=== PATIENT | female | born 1940 | race Caucasian/White ===

== ENCOUNTER → 2019-11-28 09:18 | Outpatient (BNVA) | payer MEDICARE, SELFPAY | PROVIDERS: Family Provider Family Medicine; PCP Family Medicine; Visit Provider Family Medicine | DX: I10 Essential (primary) hypertension (principal); E11.9 Type 2 diabetes mellitus without complications; E78.5 Hyperlipidemia, unspecified; K21.9 Gastro-esophageal reflux disease without esophagitis; N39.46 Mixed incontinence | CPT/HCPCS: 80053; 80061; 82043; 83036; 85025 ==

== ENCOUNTER → 2019-12-14 08:03 | Outpatient (BNVA) | payer MEDICARE, SELFPAY | PROVIDERS: Family Provider Family Medicine; PCP Family Medicine; Visit Provider Family Medicine | DX: R79.89 Other specified abnormal findings of blood chemistry (principal) | CPT/HCPCS: 80048 ==

== ENCOUNTER → 2020-02-13 09:48 | Outpatient (BNVA) | payer MEDICARE, SELFPAY | PROVIDERS: Family Provider Family Medicine; PCP Family Medicine; Visit Provider Specialist | DX: R79.89 Other specified abnormal findings of blood chemistry (principal); M25.511 Pain in right shoulder; Z98.890 Other specified postprocedural states | CPT/HCPCS: 73030; 80048 ==

== ENCOUNTER → 2020-03-14 08:35 | Outpatient (BNVA) | payer MEDICARE, SELFPAY | PROVIDERS: Family Provider Family Medicine; PCP Family Medicine; Visit Provider Family Medicine | DX: I10 Essential (primary) hypertension (principal); E11.9 Type 2 diabetes mellitus without complications | CPT/HCPCS: 80048; 83036 ==

== ENCOUNTER 2020-05-15 08:32 | Outpatient (CLI) | payer MEDICARE, SELFPAY ==
--- NOTE | 2020-05-15 08:37 | MM_ITS ---
WS: [id number] BILATERAL SCREENING DIGITAL MAMMOGRAM WITH CAD HISTORY: SCREENING COMPARISON: 03/27/2019 Bilateral CC and MLO views submitted. Computer aided detection analyzed. Breast composition: The breasts are heterogeneously dense, which may obscure small masses. No suspici ous masses, microcalcifications or architectural distortion. Scattered asymmetries and calcifications are stable. MM/[place] [id number] IMPRESSION: BI-RADS: 2-Benign FOLLOW UP: 1 Year Follow-up
== END 2020-05-15 08:33 | disposition home or self-care (01) ==
LOC: RADSHAW 08:36
PROVIDERS: PCP Family Medicine; Visit Provider Family Medicine
DX: Z12.31 Encounter for screening mammogram for malignant neoplasm of breast (principal)
CPT/HCPCS: 77067

== ENCOUNTER → 2020-05-29 08:16 | Outpatient (BNVA) | payer MEDICARE, SELFPAY | PROVIDERS: PCP Family Medicine; Visit Provider Family Medicine | DX: I10 Essential (primary) hypertension (principal); E78.2 Mixed hyperlipidemia; E11.9 Type 2 diabetes mellitus without complications; K21.9 Gastro-esophageal reflux disease without esophagitis | CPT/HCPCS: 80048; 80061 ==

== ENCOUNTER → 2020-11-24 08:23 | Outpatient (BNVA) | payer MEDICARE, SELFPAY | PROVIDERS: PCP Family Medicine; Visit Provider Family Medicine | DX: I10 Essential (primary) hypertension (principal); E11.9 Type 2 diabetes mellitus without complications; G89.29 Other chronic pain; M54.5 Low back pain; E78.2 Mixed hyperlipidemia; K21.9 Gastro-esophageal reflux disease without esophagitis; N39.46 Mixed incontinence | CPT/HCPCS: 80053; 80307; 80373; 82043; 83036; 85025 ==

== ENCOUNTER 2021-05-20 09:10 | Outpatient (CLI) | payer MEDICARE, SELFPAY ==
--- NOTE | 2021-05-20 09:23 | MM_ITS ---
WS: [id number] BILATERAL DIGITAL SCREENING MAMMOGRAPHY WITH CAD CLINICAL INFORMATION: SCREENING HISTORY: Screening mammogram. No current complaints. COMPARISON: May 15, 2020 TECHNIQUE: Bilateral CC and MLO views. FINDINGS: The breasts are composed of heterogeneous fibroglandular density tissue, which can limit the detectio n of small underlying mass lesions. Punctate and lucent centered calcifications. No suspicious mass, asymmetry, calcifications, or architectural distortion. No evidence of malignancy. MM/[place] [id number] IMPRESSION: BI-RADS: 2-Benign FOLLOW UP: 1 Year Follow-up Recommend return to annual screening mammography.
== END 2021-05-20 09:11 | disposition home or self-care (01) ==
LOC: RADSHAW 09:21
PROVIDERS: PCP Family Medicine; Visit Provider Family Medicine
DX: Z12.31 Encounter for screening mammogram for malignant neoplasm of breast (principal)
CPT/HCPCS: 77067

== ENCOUNTER → 2021-05-25 09:31 | Outpatient (BNVA) | payer MEDICARE, SELFPAY | PROVIDERS: PCP Family Medicine; Visit Provider Family Medicine | DX: E78.2 Mixed hyperlipidemia (principal); E11.9 Type 2 diabetes mellitus without complications; M54.50 Low back pain, unspecified | CPT/HCPCS: 80053; 80061; 83036 ==

== ENCOUNTER → 2021-11-23 08:47 | Outpatient (BNVA) | payer MEDICARE, SELFPAY | PROVIDERS: PCP Family Medicine; Visit Provider Family Medicine | DX: E11.9 Type 2 diabetes mellitus without complications (principal); I10 Essential (primary) hypertension; E78.2 Mixed hyperlipidemia; K21.9 Gastro-esophageal reflux disease without esophagitis; N39.46 Mixed incontinence | CPT/HCPCS: 80053; 82043; 83036; 85025 ==

== ENCOUNTER 2022-03-03 07:21 | Outpatient (CLI) | payer MEDICARE, SELFPAY ==
[2022-03-03 07:37] VITALS: BMI 32.3
--- NOTE | 2022-03-03 07:39 | SUR.PREOP ---
Test Change Spoke with MD yesterday reguarding stress modality. Patient unable to walk on the treadmill d/t sciatic nerve injections from Tuesday. Clarified with Josie Cifuentes to change stress modality to Lexiscan. Noted. Patient ok with the change.
--- NOTE | 2022-03-03 07:42 | NMCV_ITS ---
NM shu perf SPECT r/s* [id number] Annette Zavala Age: 81 Gender: F : 1940 Exam Date: 03/03/2022 08:37 Ordering Phys: Josie Cifuentes DO Technologist: LUIS Barrett Exam Location: [facility] Indications: DYSPNEA STRESS TEST Please see separate stress test report in [facility] for full findings IMAGE PROTOCOL Rest/Stress 1 Lexiscan Day Radiopharmaceutical Dose (mCi) Administration Site Administered by Rest: Tc-99m 10.7 IV LUIS Brown Sestamibi Stress:Tc-99m 32.6 IV LUIS Brown Sestamibi Rest: 03-Mar-2022 60 Discovery 630 Stress: 03-Mar-2022 30 Discovery 630 0.4mg Lexiscan. Images obtained in supine and prone position. SPECT RESULTS Technical Quality: Excellent Raw Data Analysis: Normal Image Corrections: No attenuation or motion correction applied Summed Stress Score: 0 Summed Rest Score: 1 Summed Difference Score: 0 PERFUSION FINDINGS Small size perfusion abnormality of mild severity of mid inferolateral wall with improved tracer uptake on stress images. This is suggestive of attenuation artifact. FUNCTIONAL RESULTS (calculated via Gated SPECT) Stress Image LV EF (%): 84 Stress EDV (mL):44 TID: 1.11 Stress ESV (mL):7 FUNCTIONAL FINDINGS: The left ventricle is normal in size. Transient Ischemia Dilatation of 1.1. The left ventricular ejection fraction is normal with a value of 84%. There is hyperdynamic left ventricular wall thickening. IMPRESSIONS 1. Myocardial perfusion imaging is normal. 2. Overall left ventricular systolic function is hyperdynamic without regional wall motion abnormalities, LVEF=84%. 3. No EKG changes with Lexiscan infusion. Refer to separate report for details. Francheska Ernst MD (Electronically Signed) Final Date: 03 March 2022 13:12 S
--- NOTE | 2022-03-03 07:42 | ECG_ITS ---
[facility] Test Date: 2022-03-03 Pat Name: Annette Zavala Department: Room: Gender: Female Rib Chopper: : 1940 Requested By: Josie Cifuentes Order Number: [id number] Juan Jose MD: Francheska Ernst M.D. Interpretive Statements NAME OF STUDY: LEXISCAN SESTAMIBI STRESS TEST INDICATION: Dyspnea on Exertion PROCEDURE: At the baseline, the blood pressure was 166/84 mmHg with a heart rate of 55 beats per min. The electrocardiogram showed sinus bradycardia, normal axis with nonspecific ST depression. The Lexiscan was infused over a period of 20 seconds. A total of 0.4 milligrams of Lexiscan was infused. The stress phase was continued for a total of 5 minutes. Heart rate at the end of the stress phase was 75 bpm with a blood pressure of 142/74 mmHg. The EKG at the peak infusion revealed sinus rhythm with no significant ST-T wave changes. The study was terminated due to protocol completion. Sestamibi was injected 20 seconds after the Lexiscan infusion. Blood pressure at the end of the recovery phase was 141/62 mmHg with a heart rate of 72 beats per minute. CONCLUSION: 1. No significant EKG changes with the LexiScan infusion. 2. No LexiScan induced chest pain or cardiac arrhythmia. 3. Normal blood pressure and heart rate response. 4. Sestamibi/sestamibi perfusion scan pending; see separate report. Electronically Signed On 03-03-2022 13:15:04 CDT by Francheska Ernst M.D. [id number]
[2022-03-03] MEDS: regadenoson 0.4 Mg/5 ml Syringe IVP (09:29)
[2022-03-03 09:46] VITALS: BP 141/62; PULSE 82
== END 2022-03-03 07:22 | disposition home or self-care (01) ==
PROVIDERS: PCP Family Medicine; Visit Provider Family Medicine
DX: R06.09 Other forms of dyspnea (principal)
CPT/HCPCS: 78452; 93017; A9500; J2785

== ENCOUNTER 2022-05-20 09:07 | Outpatient (CLI) | payer MEDICARE, SELFPAY ==
--- NOTE | 2022-05-20 09:20 | MM_ITS ---
WS: [id number] BILATERAL SCREENING DIGITAL TOMOSYNTHESIS MAMMOGRAM WITH CAD HISTORY: SCREENING COMPARISON: 05/20/2021, 05/15/2020 and 03/27/2019 Bilateral CC and MLO views with tomosynthesis and synthetic mammography submitted. Computer aided det ection analyzed. Breast composition: The breasts are heterogeneously dense, which may obscure small masses. No suspici ous masses, microcalcifications or architectural distortion. Numerous benign-appearing calcifications . Scattered asymmetries are stable. No progression or change or distortion over multiple prior years. MM/[place] [id number] IMPRESSION: BI-RADS: 2-Benign FOLLOW UP: 1 Year Follow-up
== END 2022-05-20 09:08 | disposition home or self-care (01) ==
PROVIDERS: PCP Family Medicine; Visit Provider Family Medicine
DX: Z12.31 Encounter for screening mammogram for malignant neoplasm of breast (principal)
CPT/HCPCS: 77063; 77067

== ENCOUNTER → 2022-06-15 12:04 | Outpatient (BNVA) | payer MEDICARE, SELFPAY | PROVIDERS: PCP Family Medicine; Visit Provider Family Medicine | DX: N39.46 Mixed incontinence (principal); E78.2 Mixed hyperlipidemia; M54.42 Lumbago with sciatica, left side; G89.29 Other chronic pain; I10 Essential (primary) hypertension | CPT/HCPCS: 80048; 80061 ==

== ENCOUNTER → 2022-06-21 07:50 | Outpatient (BNVA) | payer MEDICARE, SELFPAY | PROVIDERS: PCP Family Medicine; Visit Provider Family Medicine | DX: E83.52 Hypercalcemia (principal) | CPT/HCPCS: 82310; 83970 ==

== ENCOUNTER → 2022-06-22 12:26 | Outpatient (BNVA) | payer MEDICARE, SELFPAY | PROVIDERS: PCP Family Medicine; Visit Provider Family Medicine | DX: E55.9 Vitamin D deficiency, unspecified (principal); E83.52 Hypercalcemia | CPT/HCPCS: 82306 ==

== ENCOUNTER 2022-06-24 13:30 | Outpatient (CLI) | payer MEDICARE, SELFPAY ==
[2022-06-24 15:19] LABS: Total Volume Urine 500 ml
[2022-06-24 15:36] LABS: Calcium 24 Hour Urine 192 mg/24hr (100-300); Urine Calcium Result 38.3 mg/dL
== END 2022-06-24 13:31 | disposition home or self-care (01) ==
PROVIDERS: PCP Family Medicine; Visit Provider Family Medicine
DX: E83.52 Hypercalcemia (principal)
CPT/HCPCS: 82340

== ENCOUNTER 2022-07-07 14:48 | Outpatient (CLI) | payer MEDICARE, SELFPAY ==
--- NOTE | 2022-07-07 15:00 | XR_ITS ---
WS: [id number] DEXA (DUAL ENERGY X-RAY ABSORPTIOMETRY) Bone mineral density was performed using a [employer] machine. HISTORY: E21.0 - Primary hyperparathyroidism COMPARISON: 03/27/2019 Lumbar spine BMD (L1-L4): 1.025 g/cm2 T score: -1.3 Z score: 0.2 Total hip BMD: Left: 0.823 g/cm2. T score: -1.5 Z score: 0.3 Right: 0.849 g/cm2. T score: -1.3 Z score: 0.5 10 year probability of a major osteoporotic fracture is 18.2%. Compared to the prior study from 03/27/2019. Lumbar spine bone mineral density has increased by 2.4%. Bilateral hips bone mineral density has increased by 0.4%. XR/XR DEXA axial skeleton* [id number] IMPRESSION: OSTEOPENIA based upon the WHO classification for females. Significant increase in bone mineral density within the lumbar spine since the prior study.
== END 2022-07-07 14:49 | disposition home or self-care (01) ==
PROVIDERS: PCP Family Medicine; Visit Provider Family Medicine
DX: E21.0 Primary hyperparathyroidism (principal); M85.80 Other specified disorders of bone density and structure, unspecified site
CPT/HCPCS: 77080

== ENCOUNTER → 2022-08-02 11:19 | Outpatient (BNVA) | payer MEDICARE, SELFPAY | PROVIDERS: PCP Family Medicine; Referring Provider Family Medicine; Visit Provider Internal Medicine | DX: E83.52 Hypercalcemia (principal); R63.5 Abnormal weight gain; Z68.34 Body mass index [BMI] 34.0-34.9, adult | CPT/HCPCS: 99204 ==

== ENCOUNTER → 2022-08-10 11:16 | Outpatient (BNVA) | payer MEDICARE, SELFPAY | PROVIDERS: PCP Family Medicine; Visit Provider Internal Medicine | DX: M54.42 Lumbago with sciatica, left side; G89.29 Other chronic pain; K21.9 Gastro-esophageal reflux disease without esophagitis; R06.09 Other forms of dyspnea; I10 Essential (primary) hypertension; R32 Unspecified urinary incontinence; E78.5 Hyperlipidemia, unspecified | CPT/HCPCS: 84439; 84443; 84480 ==

== ENCOUNTER → 2022-12-14 08:25 | Outpatient (BNVA) | payer MEDICARE, SELFPAY | PROVIDERS: PCP Family Medicine; Visit Provider Family Medicine | DX: N18.32 Chronic kidney disease, stage 3b (principal); I10 Essential (primary) hypertension; E11.9 Type 2 diabetes mellitus without complications | CPT/HCPCS: 80053; 83036 ==

== ENCOUNTER 2023-05-25 08:59 | Outpatient (CLI) | payer MEDICARE, SELFPAY ==
--- NOTE | 2023-05-25 09:13 | MM_ITS ---
WS: [id number] BILATERAL SCREENING DIGITAL TOMOSYNTHESIS MAMMOGRAM WITH CAD HISTORY: SCREENING COMPARISON: 05/20/2022, 05/15/2020 and 05/20/2021 Bilateral CC and MLO views with tomosynthesis and synthetic mammography submitted. Computer aided det ection analyzed. Breast composition: The breasts are heterogeneously dense, which may obscure small masses. No suspici ous masses, microcalcifications or architectural distortion. Bilateral asymmetries and calcifications in each breast. IMPRESSION: MM/[place] [id number] BI-RADS: 2-Benign FOLLOW UP: 1 Year Follow-up
== END 2023-05-25 09:00 | disposition home or self-care (01) ==
LOC: RAD 09:01
PROVIDERS: PCP Family Medicine; Visit Provider Family Medicine
DX: Z12.31 Encounter for screening mammogram for malignant neoplasm of breast (principal); R92.333 Mammographic heterogeneous density, bilateral breasts; N64.89 Other specified disorders of breast; R92.1 Mammographic calcification found on diagnostic imaging of breast
CPT/HCPCS: 77063; 77067

== ENCOUNTER → 2023-06-09 08:35 | Outpatient (BNVA) | payer MEDICARE, SELFPAY | PROVIDERS: PCP Family Medicine; Visit Provider Family Medicine | DX: I10 Essential (primary) hypertension (principal); E11.9 Type 2 diabetes mellitus without complications | CPT/HCPCS: 80053; 80061; 82043; 83036; 85025 ==

== ENCOUNTER → 2024-01-05 09:14 | Outpatient (BNVA) | payer MEDICARE, SELFPAY | PROVIDERS: PCP Family Medicine; Visit Provider Family Medicine | DX: N18.31 Chronic kidney disease, stage 3a (principal); R73.03 Prediabetes | CPT/HCPCS: 80053; 83036 ==

== ENCOUNTER 2024-06-18 08:38 | Outpatient (CLI) | payer MEDICARE, SELFPAY ==
--- NOTE | 2024-06-18 09:00 | MM_ITS ---
WS: [id number] VIEWS: MLO and CC views both breasts. 3D digital tomosynthesis is also included in this exam. Comparison made with prior exam of 03/27/2019. 05/15/2020. 05/20/2021. 05/20/2022. 05/25/2023.. Findings: The breasts are heterogeneously dense, which may obscure small masses. No mass, tumor calcification or architectural distortion. No new finding. MM/MM scr BI tomosynthesis [id number] Impression: BI-RADS: 2 - Benign FOLLOW-UP: 1 Year Follow-up This mammogram was also analyzed by the Computer Aided Detection System R2 Imag e [employer].
--- NOTE | 2024-06-18 09:15 | XRR_ITS ---
PROCEDURE INFORMATION: Exam: XR Lumbosacral Spine Exam date and time: 06/18/2024 9:45 AM Age: 83 years old Clinical indication: Pain; Lumbago with sciatica; Left; Additional info: M54.42 - lumbago with sciatica, left side TECHNIQUE: Imaging protocol: Radiologic exam of the lumbosacral spine. Views: 4 or 5 views. COMPARISON: No relevant prior studies available. FINDINGS: Bones/joints: Mild broad-based convex left lumbar curvature centered at L2-L3. Vertebral body height is maintained. Moderate diffuse lumbar disc narrowing. There are chronic bilateral L5 pars defects with grade 2 anterolisthesis of L5 on S1. There is moderate diffuse lumbar facet spondylosis. The visible portion of the pelvis and sacrum is intact. Visible portions of the ribs are intact. Soft tissues: Visible soft tissues are unremarkable. Vasculature: There is moderate aortic atherosclerotic disease. XR/XR lumbar spine min 4V [id number] IMPRESSION: 1. 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 2. Moderate diffuse lumbar disc and facet degeneration.
== END 2024-06-18 08:39 ==
LOC: RAD 08:39
PROVIDERS: PCP Family Medicine; Visit Provider Family Medicine
DX: M54.16 Radiculopathy, lumbar region (principal); M54.42 Lumbago with sciatica, left side; G89.29 Other chronic pain; Z12.31 Encounter for screening mammogram for malignant neoplasm of breast; R92.333 Mammographic heterogeneous density, bilateral breasts
CPT/HCPCS: 72110; 77063; 77067; 99204

== ENCOUNTER 2024-06-28 07:51 | Outpatient (CLI) | payer MEDICARE, SELFPAY ==
--- NOTE | 2024-06-28 08:00 | MR_ITS ---
WS: [id number] MRI LUMBAR SPINE NONCONTRAST HISTORY: M54.16 - Radiculopathy, lumbar region, chronic pain down LEFT leg. COMPARISON: None available. TECHNIQUE: Sagittal and axial multisequence imaging is submitted. Advanced cervical and thoracic spondylosis. Disc bases are narrowed with osteophytes in the cervical and thoracic cord. Mild curvature of the lumbar spine. L5 anterolisthesis by 8.5 mm. L3 anterolisthesis by 2.3 mm. Moderate to advanced disc space narrowing throughout the lumbar spine with vertebral endplate osteophytes. Small amount of reactive marrow edema along the endplates of L5 and S1. No acute fracture. Conus terminates normally at L1-2 disc level. T12-L1: Broad-based shallow central disc protrusion. Mild foraminal stenosis. L1-L2: Diffuse disc bulging with facet arthritis. Moderate bilateral foraminal stenosis. L2-L3: Diffuse disc bulging with marked ligamentum flavum and facet arthritis. LEFT foraminal disc protrusion. Mild central with moderate bilateral subarticular recess and foraminal stenosis. Disc contacting the L2 and L3 nerve roots. L3-L4: Diffuse annular disc bulging with facet joint arthropathy and facet arthritis. Mild central stenosis. Moderate to severe bilateral subarticular recess and foraminal stenosis. L4-L5: Marked annular disc bulging with severe ligamentum flavum and facet arthritis. Mild central and subarticular recess encroachment. Moderate bilateral foraminal stenosis. L5-S1: Marked central stenosis. Unroofing of the disc due to anterolisthesis of L5. Severe ligamentum flavum and facet arthritis. Severe central, bilateral subarticular recess and foraminal stenosis. There is significant in contact on the L5 and S1 nerve roots. Paravertebral soft tissues are negative. MR/MR lumbar spine wo con* [id number] IMPRESSION: 1. Grade 1 anterolisthesis of L5 by 8.5 mm. 2. Multilevel areas of stenosis due to combination of disc and osteophyte and facet arthritis. 3. L5-S1: Severe central, bilateral subarticular recess and foraminal stenosis . There is significant contact on the L5 and S1 nerve roots. 4. L2-3: Mild central with moderate bilateral subarticular recess and foramina l stenosis. 5. L3-4: Mild central with moderate to severe bilateral subarticular recess an d foraminal stenosis. 6. L4-5: Moderate bilateral foraminal stenosis with mild central and subarticu lar recess stenosis. 7. L1-2: Moderate bilateral foraminal stenosis. 8. Advanced cervical and thoracic spondylosis noted on the localizer image.
== END 2024-06-28 07:52 | disposition home or self-care (01) ==
LOC: RAD 07:53
PROVIDERS: PCP Family Medicine; Visit Provider Anesthesiology Pain Medicine
DX: M54.16 Radiculopathy, lumbar region (principal); M43.16 Spondylolisthesis, lumbar region; M25.78 Osteophyte, vertebrae; M48.061 Spinal stenosis, lumbar region without neurogenic claudication; R93.7 Abnormal findings on diagnostic imaging of other parts of musculoskeletal system; M47.896 Other spondylosis, lumbar region; M47.892 Other spondylosis, cervical region; M47.894 Other spondylosis, thoracic region; M43.8X6 Other specified deforming dorsopathies, lumbar region; M48.05 Spinal stenosis, thoracolumbar region; M51.369 Other intervertebral disc degeneration, lumbar region without mention of lumbar back pain or lower extremity pain; M51.26 Other intervertebral disc displacement, lumbar region; M48.07 Spinal stenosis, lumbosacral region; M43.17 Spondylolisthesis, lumbosacral region; M47.897 Other spondylosis, lumbosacral region
CPT/HCPCS: 72148

== ENCOUNTER → 2024-07-02 08:23 | Outpatient (BNVA) | payer MEDICARE, SELFPAY | PROVIDERS: PCP Family Medicine; Visit Provider Anesthesiology Pain Medicine | DX: M79.18 Myalgia, other site (principal); M54.42 Lumbago with sciatica, left side; G89.29 Other chronic pain | CPT/HCPCS: 20553; 99214; J1010; J3490 ==

== ENCOUNTER → 2024-08-14 11:10 | Outpatient (BNVA) | payer MEDICARE, SELFPAY | PROVIDERS: PCP Family Medicine; Visit Provider Family Medicine | DX: L03.115 Cellulitis of right lower limb (principal) | CPT/HCPCS: 73630; 84550; 85025 ==

== ENCOUNTER → 2024-08-21 09:27 | Outpatient (BNVA) | payer MEDICARE, SELFPAY | PROVIDERS: PCP Family Medicine; Visit Provider Family Medicine | DX: I10 Essential (primary) hypertension (principal); R73.03 Prediabetes; M10.9 Gout, unspecified; M54.42 Lumbago with sciatica, left side; G89.29 Other chronic pain | CPT/HCPCS: 80053; 80061; 83036; 84550; 85025 ==

== ENCOUNTER → 2024-12-06 07:58 | Outpatient (BNVA) | payer MEDICARE, SELFPAY | PROVIDERS: PCP Family Medicine; Visit Provider Family Medicine | DX: M10.371 Gout due to renal impairment, right ankle and foot (principal); I10 Essential (primary) hypertension | CPT/HCPCS: 80053; 84550; 85025 ==

== ENCOUNTER → 2025-01-15 09:00 | Outpatient (BNVA) | payer MEDICARE, SELFPAY | PROVIDERS: PCP Family Medicine; Visit Provider Family Medicine | DX: R73.03 Prediabetes (principal) | CPT/HCPCS: 80048; 83036 ==